=== PATIENT | female | born 1975 | race Caucasian/White ===

== ENCOUNTER 2020-04-29 07:53 | Day surgery (SDC) | payer MEDICAID ==
[2020-04-26 09:58] LABS: BASOPHILS % (AUTO) 0.4 % (0-1); EOSINOPHILS # (AUTO) 0.1 X10'3 (0-0.9); EOSINOPHILS % (AUTO) 2.5 % (0-6); LYMPHOCYTES # (AUTO) 1.4 X10'3 (1.1-4.8); MEAN CORPUSCULAR HEMOGLOBIN 34.8 PG (27.0-31.0); MEAN CORPUSCULAR HGB CONC 33.5 g/dL (33.0-36.5); MEAN CORPUSCULAR VOLUME 104.1 FL (78-98); MEAN PLATELET VOLUME 8.6 FL (7.4-10.4); MONOCYTES # (AUTO) 0.4 X10'3 (0-0.9); MONOCYTES % (AUTO) 6.8 % (2-12); NEUTROPHILS # (AUTO) 3.8 X10'3 (1.8-7.7); NEUTROPHILS % (AUTO) 66.3 % (42-75); PRE OP HEMATOCRIT 47.4 % (35.0-45.0); PRE OP HEMOGLOBIN 15.8 g/dL (12.0-16.0); PRE OP PLATELET COUNT 175 X10'3 (140-440); RED BLOOD COUNT 4.55 X10'6 (4.20-5.60); RED CELL DISTRIBUTION WIDTH 13.4 % (11.5-14.5)
[2020-04-26 10:08] LABS: ALBUMIN 3.8 G/DL (3.4-5.0); BLOOD UREA NITROGEN 10 MG/DL (7-18); BUN/CREATININE RATIO 10.4 (6.6-38.0); CHLORIDE 109 MMOL/L (99-107); CREATININE 0.96 MG/DL (0.40-0.90); PRE OP ANION GAP 8 (8-16); PRE OP GLUCOSE 96 MG/DL (70-104); PRE OP POTASSIUM 4.2 MMOL/L (3.4-5.1); PRE OP SODIUM 142 MMOL/L (135-145); TOTAL CARBON DIOXIDE 25.5 MMOL/L (24-32); eGFR 63 ML/MIN
[2020-04-26 10:11] LABS: HCG SERUM QL NEGATIVE
[2020-04-29] VITALS (9 sets, daily range): BP systolic 132–163; BP diastolic 68–84
[~2020-04-29] VITALS: Ht 167.6 cm; Wt 102.3 kg
[~2020-04-29 07:53] MED LIST: LISI40TA4 PO; famotidine 20mg tablet PO ONE; ringers solution, lacted 1,000 ML IV SCH
[2020-04-29] MEDS ORDERED: ringers solution, lacted 1,000 ML IV SCH (07:54)
[2020-04-29] MEDS ORDERED: morphine 4 MG/ML inj SYRINge IV PRN (07:55)
[2020-04-29] MEDS ORDERED: proCHLORperazine 10 MG/2 ml inj IV PRN (07:55)
[2020-04-29] MEDS ORDERED: morphine 2 MG/ML inj. syringe IV PRN (07:55)
[2020-04-29] MEDS ORDERED: ondansetron/PF 4mg/2ml inj IV PRN (07:55)
[2020-04-29] MEDS ORDERED: meperidine/PF 25mg/ml syringe IV PRN ×3 (07:55)
[2020-04-29] MEDS ORDERED: fentaNYL/PF 50MCG/1 ML 2ML syringe ONE (12:16)
[2020-04-29] MEDS ORDERED: midazolam 2 mg/2 ml injection ONE (12:16)
[2020-04-29] MEDS ORDERED: rocuronium 10mg/ml inj IV ONE (12:24)
[2020-04-29] MEDS ORDERED: ketorolac trometh. 30mg/ml inj. ONE (12:24)
[2020-04-29] MEDS ORDERED: ondansetron/PF 4mg/2ml inj ONE (12:24)
[2020-04-29] MEDS ORDERED: propofol inj 20 ML IV ONE (12:24)
[2020-04-29] MEDS ORDERED: LIDOcaine 2% (20mg/ml) 5ml vial ONE (12:24)
[2020-04-29] MEDS ORDERED: meperidine/PF 25mg/ml syringe ONE (13:02)
--- NOTE | 2020-04-29 13:48 | NUR ---
Received from OR via [facility] , accompanied by Anesthesiologist LULU and report given by Anesthesiolgist. PATIENT WITH ONE BANDAID TO UMBILICUS AND NO DRAINAGE PRESENT. PATIENT WITH KHURRAM PAD IN PLACE THAT IS CDI. VSS AT THIS TIME. 10L MASK ON WITH 100% SATURATIONS. Addendum: 04/29/20 at 1356 by Ankit Rodriguez RN, RN Amended: Links added.
--- NOTE | 2020-04-29 14:58 | NUR ---
All dc criteria for discharge home has been met. IV taken out without complications. All questions answered regarding dc paperwork. Vss. Significant other present to take patient home. Dressings cdi and vital signs stable. Taken out via wheelchair to personal vehicle where patient taken home by family/friend. Addendum: 04/29/20 at 1459 by Ankit Rodriguez RN, RN Amended: Links added.
== END 2020-04-29 14:58 | disposition home or self-care (01) ==
LOC: PAS 07:53
PROVIDERS: ATTEND Obstetrics & Gynecology
DX: Z30.2 Encounter for sterilization (principal); Z30.432 Encounter for removal of intrauterine contraceptive device; N93.9 Abnormal uterine and vaginal bleeding, unspecified; N71.1 Chronic inflammatory disease of uterus; Z11.59 Encounter for screening for other viral diseases; I10 Essential (primary) hypertension; F32.9 Major depressive disorder, single episode, unspecified; Z85.41 Personal history of malignant neoplasm of cervix uteri; E66.9 Obesity, unspecified; Z98.890 Other specified postprocedural states; Z88.2 Allergy status to sulfonamides; Z87.891 Personal history of nicotine dependence; Z68.36 Body mass index [BMI] 36.0-36.9, adult; Z79.899 Other long term (current) drug therapy
CPT/HCPCS: 36415; 58301; 58563; 58670; 80048; 82948; 84703; 85025; A4264; J1885; J2001; J2175; J2250; J2270; J2405; J2704; J3010; J7120; U0003; A4355; A4618; A7000